=== PATIENT | female | born 1975 | race Caucasian/White ===

== ENCOUNTER 2017-12-25 08:10 | Emergency (ER) | END 2017-12-25 09:29 | disposition home or self-care (01) ==

== ENCOUNTER 2018-06-09 19:24 | Emergency (ER) | payer OTHER ==
[~2018-06-09] VITALS: Ht 152.4 cm; Wt 68.7 kg
[~2018-06-09 19:24] MED LIST: FERR27TA; IBUP-1542 PO; ONDA4TAB35 PO; PREN1TAB49
[2018-06-09 19:43] VITALS: Ht 152.4 cm; Wt 68.7 kg
[2018-06-09] MEDS ORDERED: FAMOTIDINE 20 MG TAB PO STA (22:18)
[2018-06-09] MEDS ORDERED: SOD CHLORIDE 0.9% 1,000 ML IV STA (22:18)
[2018-06-09] MEDS ORDERED: METOCLOPRAMIDE 10 MG INJ IV STA (22:18)
[2018-06-09] MEDS ORDERED: LIDOCAINE/MYLANTA 40 ML BTL PO STA (22:18)
[2018-06-09] MEDS ORDERED: FAMO-96 PO (23:33)
--- NOTE | 2018-06-09 23:34 | ERD ---
ER Documentation Chief Complaint Chief Complaint abdominal pain x3 days HPI 43-year-old female presenting with epigastric pain radiating to her right upper and left upper quadrants. The pain is been going on for 3 days, intermittent, worse with eating or drinking. She complains of a burning pain in her epigastrium with radiation up the center of her chest. No associated nausea, vomiting, diarrhea, hematemesis, hematochezia or melena. No associated fevers or chills. No shortness of breath. She denies eating spicy food. She tried antacids at home with some improvement but then her pain worsened. ROS All systems reviewed and are negative except as per history of present illness. Medications Home Meds Active Scripts Famotidine* (Pepcid*) 20 Mg Tablet, 20 MG PO BID for 14 Days, TAB Prov:TIFFANIE SHARMA MD 06/09/18 Ibuprofen* (Motrin*) 600 Mg Tab, 600 MG PO Q6H PRN for PAIN AND OR ELEVATED TEMP, #30 TAB Prov:MARISELA CHEN NP 12/25/17 Ibuprofen* (Motrin*) 600 Mg Tab, 600 MG PO Q6H PRN for PAIN AND OR ELEVATED TEM P, #30 Prov:MARISELA CHEN NP 09/08/14 Ondansetron Hcl* (Zofran* ODT) 4 mg -ODT Tab.disper, 4 MG PO Q6 PRN for NAUSEA AND/OR VOMITING, #10 TAB Prov:MARISELA CHEN NP 09/08/14 Reported Medications Ferrous Sulfate (Iron) 1 Tab Tablet 11/04/09 Vits W-Ca,Fe,Fa(<1MG) () 1 Tab Tablet 10/15/09 Allergies Allergies: Coded Allergies: No Known Drug Allergies (Verified Allergy, Mild, 09/08/14) PMhx/Soc History of Surgery: Yes (2 ) Anesthesia Reaction: No Hx Neurological Disorder: No Hx Respiratory Disorders: No Hx Cardiac Disorders: No Hx Psychiatric Problems: No Hx Miscellaneous Medical Probl: No Hx Alcohol Use: No Hx Substance Use: No Hx Tobacco Use: No Smoking Status: Never smoker FmHx Family History: No diabetes Physical Exam Vitals Vital Signs Date Temp Pulse Resp B/P (MAP) Pulse Ox O2 O2 Flow FiO2 Time Delivery Rate 06/09/18 99.0 80 18 123/80 100 Room Air 23:45 (94) 06/09/18 82 17 139/79 100 Room Air 21:22 (99) 06/09/18 99.0 91 18 135/76 99 19:43 (95) Physical Exam Const: No acute distress Head: Atraumatic Eyes: Normal Conjunctiva ENT: Normal External Ears, Nose and Mouth. Neck: Full range of motion. No meningismus. Resp: Clear to auscultation bilaterally Cardio: Regular rate and rhythm, no murmurs Abd: Soft, non tender, non distended. No masses. No McBurney's point tenderness. Negative Drake sign. Normal bowel sounds Skin: No petechiae or rashes Back: No midline or flank tenderness Ext: No cyanosis, or edema Neur: Awake and alert Psych: Normal Mood and Affect Result Diagram: 06/09/18223606/09/182236 Results 24 hrs Laboratory Tests Test 06/09/18 22:37 06/09/18 23:05 White Blood Count 6.7 10^3/ul Red Blood Count 4.17 10^6/ul Hemoglobin 12.0 g/dl Hematocrit 37.0 % Mean Corpuscular Volume 88.7 fl Mean Corpuscular Hemoglobin 28.8 pg Mean Corpuscular Hemoglobin Concent 32.4 g/dl Red Cell Distribution Width 13.2 % Platelet Count 198 10^3/UL Mean Platelet Volume 11.5 fl Immature Granulocytes % 0.300 % Neutrophils % 50.7 % Lymphocytes % 39.3 % Monocytes % 7.3 % Eosinophils % 2.1 % Basophils % 0.3 % Nucleated Red Blood Cells % 0.0 /100WBC Immature Granulocytes # 0.020 10^3/ul Neutrophils # 3.4 10^3/ul Lymphocytes # 2.6 10^3/ul Monocytes # 0.5 10^3/ul Eosinophils # 0.1 10^3/ul Basophils # 0.0 10^3/ul Nucleated Red Blood Cells # 0.0 10^3/ul Sodium Level 141 mmol/L Potassium Level 3.9 mmol/L Chloride Level 106 mmol/L Carbon Dioxide Level 28 mmol/L Anion Gap 7 Blood Urea Nitrogen 11 mg/dl Creatinine 0.84 mg/dl Est Glomerular Filtrat Rate mL/min > 60 mL/min Glucose Level 116 mg/dl Calcium Level 9.9 mg/dl Total Bilirubin 0.2 mg/dl Direct Bilirubin 0.00 mg/dl Indirect Bilirubin 0.2 mg/dl Aspartate Amino Transf (AST/SGOT) 20 IU/L Alanine Aminotransferase (ALT/SGPT) 11 IU/L Alkaline Phosphatase 41 IU/L Total Protein 7.6 g/dl Albumin 4.2 g/dl Globulin 3.40 g/dl Albumin/Globulin Ratio 1.23 Lipase 149 U/L POC Beta HCG, Qualitative NEGATIVE Current Medications Medications Dose Sig/Nury Start Time Status Last (Trade) Ordered Route PRN Stop Time Admin Dose Reason Admin Sodium 1,000 ml @ Q1H STAT 06/09/18 DC 06/09/18 Chloride 1,000 mls/hr IV 22:18 06/09/18 22:54 23:17 10 mg ONCE STAT 06/09/18 DC 06/09/18 Metoclopramid IV 22:18 06/09/18 22:55 e HCl 22:21 (Reglan) Famotidine 20 mg ONCE STAT 06/09/18 DC 06/09/18 (Pepcid) PO 22:18 06/09/18 22:55 22:21 40 ml ONCE STAT 06/09/18 DC 06/09/18 Miscellaneous PO 22:18 06/09/18 22:54 Medication 22:21 (Gi Cocktail (2)) Procedures/MDM EMERGENT LABS AND DIAGNOSTIC STUDIES: Lab Results above were reviewed and interpreted by me. CBC: no anemia or evidence of infection CMP: No evidence of clinically significant electrolyte abnormality, acidosis, renal failure, hypoglycemia, liver disease, or biliary obstruction Lipase: no evidence of pancreatitis 12-lead EKG was interpreted by Prem Sharma MD: Normal Sinus Rhythm Normal axis Normal intervals No acute ST or T wave changes suggestive of acute ischemia or STEMI. Initial Nursing notes reviewed. Previous Medical Records requested via the Electronic Health Record. EMERGENCY DEPARTMENT COURSE / MEDICAL DECISION MAKING: Differential includes but is not limited to biliary colic, biliary obstruction, acute cholecystitis, pancreatitis, hepatitis, lower lobe pneumonia, gastritis, colitis, cardiac pathology, aortic dissection, ureterolithiasis, pyelonephritis. Labs were ordered to evaluate for above and were unremarkable. She was given a GI cocktail and Pepcid with improvement of her symptoms. I do not feel any imaging is indicated at this time as I have a low suspicion for acute surgical abdomen. I do not suspect pneumonia. Low suspicion for cardiopulmonary p athology. Patient likely suffering from gastritis and reflux. Recommended starting Pepcid and following up with primary care doctor within the next few days. Return precautions given. Patient's blood pressure was elevated (>120/80) but appears stable without evidence of hypertensive emergency or urgency. The patient was counseled about the risks of hypertension and urged to pursue outpatient monitoring and therapy within a week with their primary care physician. Departure Diagnosis: Primary Impression: Abdominal pain Abdominal location: epigastric Qualified Codes: R10.13 - Epigastric pain Additional Impression: Acid reflux Esophagitis presence: esophagitis presence not specified Qualified Codes: K21.9 - Gastro-esophageal reflux disease without esophagitis Condition: Stable Patient Instructions: Gastritis (Adult), Epigastric Pain (Uncertain Cause) TIFFANIE SHARMA MD Jun 09, 2018 23:34
[2018-06-09 23:45] VITALS: BP 123/80; PULSE 80; RESP 18
== END 2018-06-09 23:45 | disposition home or self-care (01) ==
LOC: E/R 19:24
DX: K21.9 Gastro-esophageal reflux disease without esophagitis (principal)
CPT/HCPCS: 36415; 80053; 81025; 83690; 85025; 96361; 96374; J2765; J7030; Z7502; Z7610; 93005